=== PATIENT | male | born 1975 | race Caucasian/White ===

== ENCOUNTER 2020-10-22 09:03 | Day surgery (SDC) | payer OTHER ==
[~2020-10-22 09:03] MED LIST: Lactated Ringers 1,000 ML IV SCH; ceFAZolin 2 GM in Premix Bag 1 BAG IV SCH
--- NOTE | 2020-10-22 10:07 | PCM.PREANE ---
Preanesthetic Assessment - Anesthesia/Transfusion/Family Hx Anesthesia History: Prior Anesthesia Without Reaction Transfusion History: No Prior Transfusion(s) - Review of Systems General: No Symptoms Pulmonary: No Symptoms Cardiovascular: No Symptoms Gastrointestinal: No Symptoms Neurological: Other (left shoulder pain 08/26) Other: Reports: None - Physical Assessment NPO Status Date: 10/21/20 NPO Status Time: 21:30 Vital Signs: Last Vital Signs Temp 36.3 C 10/22/20 09:22 Pulse 61 10/22/20 09:22 Resp 16 10/22/20 09:22 BP 135/82 10/22/20 09:22 Pulse Ox 99 10/22/20 09:22 Height: 1.88 m Weight: 95.254 kg ASA Class: 2 Mental Status: Alert & Oriented x3 Airway Class: Mallampati = 2 Dentition: Reports: Normal Dentition Thyro-Mental Finger Breadths: 3 Mouth Opening Finger Breadths: 3 ROM/Head Extension: Full Lungs: Clear to Auscultation, Normal Respiratory Effort Cardiovascular: Regular Rate, Regular Rhythm - Allergies Allergies/Adverse Reactions: Allergies Allergy/AdvReac Type Severity Reaction Status Date / Time Sulfa (Sulfonamide Allergy Rash Verified 10/22/20 09:28 Antibiotics) - Acknowledgements Anesthesia Type Planned: General Anesthesia (The patient understands and accepts the anesthetic risks and benefits of general anesthesia. All questions answered. The patient has been consented. ) Pt an Appropriate Candidate for the Planned Anesthesia: Yes Alternatives and Risks of Anesthesia Discussed w Pt/Guardian: Yes Pt/Guardian Understands and Agrees with Anesthesia Plan: Yes PreAnesthesia Questionnaire HEENT History: Reports: Allergic Rhinitis, Other (See Below) Other HEENT History: uses reading glasses Cardiovascular History: Reports: Arrhythmia (history of palpitation-wore holter monitor, and was cleared.), Other (See Below) (Able to walk up 2 flights of stairs) Respiratory History: Reports: None Gastrointestinal History: Reports: GERD (controlled by diet and OTC meds.), Other (See Below) Other Gastrointestinal History: occasional heartburn- takes Tums Genitourinary History: Reports: None Musculoskeletal History: Reports: Other (See Below) (left shoulder impingement "08/26".) Neurological History: Reports: None Psychiatric History: Reports: Other (See Below) Other Psychiatric History: Claustrophobic Endocrine/Metabolic History: Reports: None Hematologic History: Reports: None Immunologic History: Reports: None Dermatologic History: Reports: None - Past Surgical History Head Surgeries/Procedures: Reports: None HEENT Surgical History: Reports: Other (See Below) Other HEENT Surgeries/Procedures: had a hole in retina- had cryotherapy x3 GI Surgical History: Reports: Hernia, Abdominal Other GI Surgeries/Procedures: hx of Umbilical hernia repair Male Surgical History: Reports: Vasectomy - SUBSTANCE USE Tobacco Use Status *Q: Never Tobacco User Days Per Week of Alcohol Use: 1 Recreational Drug Use History: No - HOME MEDS Home Medications: Home Meds Multivitamin [Multivitamins] 1 tab PO DAILY 12/28/14 [History] Fish Oil/[place]-3 Fatty Acids [Fish Oil 1,000 MG] 2,000 mg PO DAILY 10/16/20 [History] Ibuprofen 200 mg PO TID PRN 10/16/20 [History] Psyllium Husk/Aspartame [Metamucil [facility] Powder] 1 dose PO DAILY PRN 10/16/20 [History] - CURRENT (IN HOUSE) MEDS Current Meds: Current Medications Lactated Ringer's (Ringers, Lactated) 1,000 mls @ 100 mls/hr IV ASDIRECTED [facility] Last Admin: 10/22/20 09:27 Dose: 100 mls/hr Documented by: Cefazolin Sodium/Dextrose 2 gm (/ Premix) 50 mls @ 100 mls/hr IV ONCALL SHARLA
[2020-10-22] MEDS ORDERED: Bupivacaine 25%/EPINEPHrine/PF 30 ML ONE (10:19)
[2020-10-22] MEDS ORDERED: Propofol 200 MG/20 ML SDV ONE ×2 (10:29→10:53)
[2020-10-22] MEDS ORDERED: fentaNYL 100 MCG/2 ML SDV ONE (10:29)
[2020-10-22] MEDS ORDERED: Midazolam 1 MG/ML 2 ML SDV ONE (10:29)
[2020-10-22] MEDS ORDERED: Ondansetron 4 MG/2 ML SDV ONE (10:33)
[2020-10-22] MEDS ORDERED: Dexamethasone 4 MG/ML 5 ML MDV ONE (10:33)
[2020-10-22] MEDS ORDERED: ePHEDrine 50 MG/ML SDV ONE (11:19)
[2020-10-22] MEDS ORDERED: fentaNYL 100 MCG/2 ML SDV IVPUSH PRN (11:21)
[2020-10-22] MEDS ORDERED: Albuterol 0.083% 2.5 MG/3 ML Neb Soln NEB PRN (11:21)
[2020-10-22] MEDS ORDERED: 50% Dextrose in Water 50 ML Syringe IVPUSH PRN (11:21)
[2020-10-22] MEDS ORDERED: Atropine 0.1 MG/ML 10 ML Syringe IVPUSH PRN ×2 (11:21)
[2020-10-22] MEDS ORDERED: EPINEPHrine 1:10,000 1 MG/10 ML Syringe IVPUSH PRN (11:21)
[2020-10-22] MEDS ORDERED: Naloxone 0.4 MG/ML Syringe IVPUSH PRN (11:21)
[2020-10-22] MEDS ORDERED: HYDROmorphone 2 MG/ML Syringe IVPUSH PRN (11:22)
[2020-10-22] MEDS ORDERED: Ondansetron 4 MG/2 ML SDV IVPUSH PRN (11:22)
[2020-10-22] MEDS ORDERED: Ketorolac 30 MG/ML SDV ONE (11:48)
--- NOTE | 2020-10-22 12:27 | PCM.POSTAN ---
POST ANESTHESIA ASSESSMENT - MENTAL STATUS Mental Status: Alert, Oriented - VITAL SIGNS Vital Signs: Last Vital Signs Temp 36.4 C 10/22/20 11:41 Pulse 73 10/22/20 12:21 Resp 14 10/22/20 12:21 BP 102/60 10/22/20 12:16 Pulse Ox 97 10/22/20 12:21 - RESPIRATORY Respiratory Status: Respiratory Rate WNL, Airway Patent, O2 Saturation Stable - CARDIOVASCULAR CV Status: Pulse Rate WNL, Blood Pressure Stable - GASTROINTESTINAL GI Status: No Symptoms - POST OP HYDRATION Hydration Status: Adequate & Stable
--- NOTE | 2020-10-22 13:16 | PCM48HPAN ---
Post Anesthesia Note - EVALUATION WITHIN 48HRS OF ANESTHETIC Vital Signs in Normal Range: Yes Patient Participated in Evaluation: Yes Respiratory Function Stable: Yes Airway Patent: Yes Cardiovascular Function Stable: Yes Hydration Status Stable: Yes Pain Control Satisfactory: Yes Nausea and Vomiting Control Satisfactory: Yes Mental Status Recovered: Yes Vital Signs: Last Vital Signs Temp 35.8 C L 10/22/20 12:25 Pulse 73 10/22/20 12:40 Resp 14 10/22/20 12:40 BP 100/68 10/22/20 12:40 Pulse Ox 97 10/22/20 12:40 - COMMENTS/OBSERVATIONS Free Text/Narrative:: The patient has no complaints at this time. There were no apparent anesthetic complications at this time. Discharge per criteria.
[2020-10-22 13:24] VITALS: BP 121/69; PULSE 66
--- NOTE | 2020-10-24 11:37 | PCM.OPNOTE ---
- General Post-Op/Procedure Note Date of Surgery/Procedure: 10/22/20 Operative Procedure(s): right knee arthroscopy. right medial partial menisectomy. right patella chondroplasty Pre Op Diagnosis: right knee posterior medial meniscus tear Post-Op Diagnosis: Same. right patellar chondromalacia grade 3 Anesthesia Technique: General LMA Primary Surgeon: Baldemar Rubio Social Problems Specialist: Chaya Altamirano EBL in mLs: 5 Complications: None Condition: Good
--- NOTE | 2020-10-24 14:54 | OR ---
SURGEON: Baldemar Rubio DATE OF PROCEDURE: 10/22/2020 PREOPERATIVE DIAGNOSIS: Right knee posterior medial meniscus tear. POSTOPERATIVE DIAGNOSES: Right knee posterior medial meniscus tear plus patellar chondromalacia, grade 3. PROCEDURE: Right knee arthroscopy with partial medial meniscectomy and patellar chondroplasty. PRIMARY SURGEON: Baldemar Rubio DO APPLIER: FAVIOLA Apple ROLE OF APPLIER: Nurse practitioner, FAVIOLA Apple, played an essential role in assisting in this case, helping to position the patient, retract structures as needed, as well as suturing and cutting sutures as indicated. Her presence improved patient's safety and decreased operative time. ANESTHESIA: General LMA. FLUID: Lactated Ringer's solution. ESTIMATED BLOOD LOSS: 5 mL. COMPLICATIONS: None. SPECIMEN: None. DISCHARGE DISPOSITION: Stable to PACU. HISTORY AND INDICATIONS FOR THE PROCEDURE: The patient was seen preoperatively by myself and Dr. Hartmann in the clinic. Preoperative imaging confirmed the above-mentioned diagnosis. Risks and goals of the procedure were explained to the patient and informed consent was obtained. DETAILS OF PROCEDURE: The patient was seen by myself and the Anesthesia staff preoperatively in the preoperative holding area where the operative site was marked. He was brought to the operative suite by Anesthesia staff where general anesthesia was administered. All extremities were found to be well padded. A well-padded tourniquet was placed on his right thigh. The right lower extremity was placed into a leg beauchamp. The right lower extremity was then prepped and draped in a sterile manner. Time-out was called identifying the correct patient, the correct procedure, the correct site, and that antibiotics were given within appropriate period of time. The right lower extremity was exsanguinated. Tourniquet was raised to 250 mmHg and let down after closing. Lateral portal was first made. The trocar was inserted and the joint insufflated with normal saline at 30 mmHg pressure. A superior grade 3 patellar chondromalacia was present. Both gutters were clear of any loose bodies. The lateral compartment was evaluated and lateral meniscus was found to be in good repair. Anterior and posterior cruciate ligaments were in good repair. No evidence of chondromalacia was seen on the medial or lateral femoral condyles or the medial or lateral plateaus. A radial tear was seen at approximately 2 o'clock position and extended to 4 o'clock. I then used a spinal needle to localize my incision site and then made an incision for a medial portal and then inserted the shaver. I was then able to shave most of it and then used a right angle biter to remove some of the edges and then used the shaver again and then cauterized it with an ablation unit to stabilize it. After this had been taken care of, I then focused on the patellar chondromalacia. I used a shaver to perform a chondroplasty and then stabilized the remaining cartilage with an ablation unit. After our goals had been accomplished, we removed all our instruments from the knee and then applied local and my assist closed with 3-0 nylon [id number] sutures followed by Betadine-soaked Adaptic followed by fluffs and an Te wrap. The patient was allowed to awaken from general anesthesia and taken to the PACU in stable condition. [id number] / MODL /[id number]
== END 2020-10-22 13:28 | disposition home or self-care (01) ==
LOC: MW.SDS 09:03
PROVIDERS: ATTEND Orthopaedic Surgery
DX: S83.241A Other tear of medial meniscus, current injury, right knee, initial encounter (principal); M22.41 Chondromalacia patellae, right knee; Z88.2 Allergy status to sulfonamides; Z87.19 Personal history of other diseases of the digestive system; Z98.890 Other specified postprocedural states; X58.XXXA Exposure to other specified factors, initial encounter
CPT/HCPCS: 29881; J0690; J1100; J1885; J2250; J2704; J7120; 01400; J2405; J3010

== ENCOUNTER 2023-08-28 08:02 | Day surgery (SDC) | payer BC ==
[~2023-08-28 08:02] MED LIST changes: -ceFAZolin 2 GM in Premix Bag 1 BAG IV SCH
[2023-08-28] MEDS ORDERED: propofoL 50 ML ONE (08:10)
[2023-08-28] MEDS ORDERED: Propofol 200 MG/20 ML SDV ONE (09:41)
[2023-08-28 10:51] VITALS: BP 105/55; PULSE 55
== END 2023-08-28 10:45 | disposition home or self-care (01) ==
LOC: MW.SDS 08:02
PROVIDERS: ATTEND Surgery
DX: K57.30 Diverticulosis of large intestine without perforation or abscess without bleeding (principal); I10 Essential (primary) hypertension; G47.33 Obstructive sleep apnea (adult) (pediatric); G89.29 Other chronic pain; R10.84 Generalized abdominal pain; Z79.899 Other long term (current) drug therapy; Z88.2 Allergy status to sulfonamides
CPT/HCPCS: 45380; J2704; J7120; 00811